=== PATIENT | female | born 1995 | race Caucasian/White ===

== ENCOUNTER 2018-04-28 00:20 | Emergency (ER) | payer SELFPAY ==
[2018-04-28] MEDS ORDERED: CYCLOBENZAPRINE 10 MG TAB ONE (01:36)
[2018-04-28] MEDS ORDERED: HYDROCODONE/APAP 7.5/325 MG TAB ONE (01:37)
[2018-04-28] MEDS ORDERED: KETOROLAC 30 MG/ML INJ ONE (01:37)
[2018-04-28 02:04] LABS: Urine Blood NEGATIVE (NEG); Urine Glucose NEGATIVE (NEG); Urine Protein NEGATIVE (NEG); Urine Specific Gravity >1.030 (1.005-1.030)
--- NOTE | 2018-04-28 03:20 | EDPHYS ---
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 - Social history:: Smoking status: Patient uses tobacco products, smokes one-half pack cigarettes per day. - Ebola Screening: : No symptoms or risks identified at this time. Vital Signs: 00:40 BP 126 / 72; Pulse 99; Resp 20; Temp 98.8; Pulse Ox 97% on R/A; Weight 81.65 kg; Height jb4 5 ft. 5 in. (165.10 cm); Pain 7/10; 01:45 BP 116 / 75; Pulse 88; Resp 16; Pulse Ox 97% on R/A; jb4 02:32 BP 102 / 58; Pulse 82; Resp 16; Pulse Ox 97% on R/A; jb4 03:31 BP 102 / 50; Pulse 78; Resp 16; Pulse Ox 98% on R/A; rr5 00:40 Body Mass Index 29.95 (81.65 kg, 165.10 cm) jb4 MDM: 00:26 Patient medically screened. cp 04/28 01:43 Order name: Urine Dipstick--Ancillary (enter results); Complete Time: 02:25 mw2 04/28 01:43 Order name: Urine --Ancillary (enter results); Complete Time: 02:25 mw2 04/28 01:02 Order name: XRAY Lumbar Spine (3 Views) cp 04/28 02:25 Order name: CT Lumbar Spine Wo Con cp 04/28 01:02 Order name: Urine Dipstick-Ancillary (obtain specimen); Complete Time: 01:42 cp 04/28 01:02 Order name: Urine Test (obtain specimen); Complete Time: 01:42 cp Administered Medications: 01:37 Drug: TORadol 60 mg Route: IM; Site: right deltoid; jb4 03:09 Follow up: Response: No adverse reaction; Pain is decreased jb4 01:37 Drug: Flexeril 10 mg Route: PO; jb4 03:09 Follow up: Response: No adverse reaction; Pain is decreased jb4 01:37 Drug: Hydrocodone-Acetaminophen (7.5 mg-325 mg) 1 tabs Route: PO; jb4 03:09 Follow up: Response: No adverse reaction; Pain is decreased jb4 Disposition: 04/28/18 03:19 Discharged to Home. Impression: Low back pain. - Condition is Stable. - Discharge Instructions: Back Pain, Adult, Back Exercises, [id number], Heat Therapy. - Prescriptions for Anaprox DS 550 mg Oral Tablet - take 1 tablet by ORAL route every 12 hours As needed; 20 tablet. Cyclobenzaprine 10 mg Oral Tablet - take 1 tablet by ORAL route every 8 hours As needed; 20 tablet. Tramadol 50 mg Oral Tablet - take 1 tablet by ORAL route every 8 hours as needed; 12 tablet. - Medication Reconciliation Form, Thank You Letter, Antibiotic Education, Prescription Opioid Use, Work release form form. - Follow up: Private Physician; When: 2 - 3 days; Reason: Recheck today's complaints. - Problem is new. - Symptoms have improved. Addendum: 05/08/2018 08:00 Addendum: HPI: Patient is a 22 y/o female who c/o low back pain. Patient reports fall c p while walking up stairs. Patient fell forward and reports hyper extending lower back. Addendum: ROS: Eyes: negative for injury, pain, redness, and discharge. Constitutional: negative for body aches, chills, fever, poor PO intake. ENT: negative for drainage from ear(s), ear pain, sore throat, difficulty swallowing, difficulty handling secretions. Cardiovascular: negative for chest pain, edema, palpitations. Respiratory: negative for cough, shortness of breath, wheezing. Abdomen/GI: negative for abdominal pain, nausea, vomiting, and diarrhea, constipation, black/tarry stool, rectal bleeding, bowel incontinence. Back: positive for pain at rest, pain with movement, of the low back. : negative for urinary symptoms, difficulty urinating, bladder incontinence, vaginal discharge. Skin: negative for cellulitis, rash. Neuro: negative for altered mental status, dizziness, headache, numbness, tingling, weakness. All other systems are negative. 08:15 Addendum: EXAM: Constitutional: The patient appears uncomfortable, in no acute c p distress, alert, awake, non-toxic, well developed, well nourished. Head/Face: Normocephalic, atraumatic. Eyes: Periorbital structures: appear normal, Conjunctiva: normal, no exudate, no injection, Sclera: no appreciated abnormality, Lids and lashes: appear normal, bilaterally. ENT: External ear(s): are unremarkable, Ear canal(s): are normal, clear, TM's: dullness, bilaterally, Nose: is normal, Mouth: Lips: moist, Oral mucosa: pink and intact, moist, Posterior pharynx: is normal, airway is patent, no erythema, no exudate, Voice: is normal. Neck: External neck: is normal, ROM/movement: is normal, is supple, without pain, no range of motions limitations, no nuchal rigidity. Chest/axilla: Inspection: normal, Palpation: is normal, no crepitus, no tenderness. Cardiovascular: Rate: normal, Rhythm: regular, Edema: is not appreciated, JVD: is not appreciated. Respiratory: the patient does not display signs of respiratory distress, Respirations: normal, no use of accessory muscles, no retractions, no splinting, no tachypnea, labored breathing, is not present, breath sounds: are clear throughout, no decreased breath sounds, no stridor, no wheezing. Abdomen/GI: Inspection: abdomen appears normal, bowel sounds: active, all quadrants, Palpation: abdomen is soft and non-tender, in all quadrants, rebound tenderness, is not appreciated, voluntary guarding, is not appreciated, involuntary guarding, is not appreciated. Back: pain, that is severe, of the low back, marked vertebral tenderness. Musculoskeletal/extremity: Exam is negative for calf tenderness, decreased range of motion, injury. Skin: cellulitis, is not appreciated, no rash present. Neuro: Orientation: to person, place and time. Mentation: is normal, Cerebellar function: is grossly normal, Motor: moves all fours, strength is normal, Sensation: is normal, Reflexes: 2+ throughout lower extremities bilaterally, Gait: steady. 08:25 Addendum: Data Reviewed: vital signs, nurses notes, lab test result(s), radiologic c p studies: plain films and CT scan, and as a result, I will discharge patient. Response to treatment: the patient's symptoms/pain have markedly improved after treatment, VSS, will discharge to home for continued monitoring. 05/09/2018 08:41 Co-signature as Attending Physician, Thomas Darden MD I agree with the assessment and c nam plan of care. Signatures: Dispatcher [employer] EDThomas Yuen MD MD cha Page, Corey, PA PA cp Gunner Reno, RN RN jb4 Corrections: (The following items were deleted from the chart) 04/28 03:37 03:19 04/28/2018 03:19 Discharged to Home. Impression: Low back pain. Condition is jb4 Stable. Forms are Medication Reconciliation Form, Thank You Letter, Antibiotic Education, Prescription Opioid Use. Follow up: Private Physician; When: 2 - 3 days; Reason: Recheck today's complaints. Problem is new. Symptoms have improved. cp
--- NOTE | 2018-04-28 03:20 | ER ---
Nurse's Notes [facility] Name: Columba Gil Age: 22 yrs Sex: Female : 1995 Arrival Date: 04/28/2018 Time: 00:23 Bed 15 Private MD: Diagnosis: Low back pain Presentation: 04/28 00:35 Presenting complaint: Patient states: I was running up the stairs and fell forward jb4 around 2200. I hurt my lower back in the fall and did not hit my head or loose consciousness. Care prior to arrival: None. Mechanism of Injury: Fall From Standing position. 00:35 Acuity: JETHRO 3 jb4 00:35 Method Of Arrival: Ambulatory jb4 00:35 Risk Assessment: Do you want to hurt yourself or someone else? Patient reports no rr5 desire to harm self or others. 00:35 Transition of care: patient was not received from another setting of care. Onset of rr5 symptoms was April 28, 2018. Initial Sepsis Screen: Does the patient meet any 2 criteria? HR > 90 bpm. Yes Does the patient have a suspected source of infection? No. Patient's initial sepsis screen is negative. Triage Assessment: 00:40 General: Appears in no apparent distress. uncomfortable, Behavior is calm, cooperative, jb4 appropriate for age. Pain: Complains of pain in low back area Pain does not radiate. Pain currently is 7 out of 10 on a pain scale. at worst was 10 out of 10 on a pain scale. Quality of pain is described as shooting, Pain began 3 hours ago. Is continuous. EENT: No signs and/or symptoms were reported regarding the EENT system. Neuro: Level of Consciousness is awake, alert, obeys commands, Oriented to person, place, time, situation. Cardiovascular: Patient's skin is warm and dry. Respiratory: Airway is patent Respiratory effort is even, unlabored, Respiratory pattern is regular, symmetrical. GI: No signs and/or symptoms were reported involving the gastrointestinal system. : No signs and/or symptoms were reported regarding the genitourinary system. Derm: Skin is intact, Skin is pink, warm \T\ dry. Musculoskeletal: Circulation, motion, and sensation intact. Reports pain in low back area. 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 - Social history:: Smoking status: Patient uses tobacco products, smokes one-half pack cigarettes per day. - Ebola Screening: : No symptoms or risks identified at this time. Screenin:45 Abuse screen: Denies threats or abuse. Nutritional screening: No deficits noted. jb4 Tuberculosis screening: No symptoms or risk factors identified. Fall Risk None identified. Assessment: 00:35 General: Appears in no apparent distress. uncomfortable, Behavior is calm, cooperative, jb4 appropriate for age. Pain: Complains of pain in low back area Pain does not radiate. Pain currently is 7 out of 10 on a pain scale. at worst was 10 out of 10 on a pain scale. Quality of pain is described as sharp, shooting, Pain began 3 hours ago. Is continuous. Neuro: Level of Consciousness is awake, alert, obeys commands, Oriented to person, place, time, situation. EENT: No signs and/or symptoms were reported regarding the EENT system. Cardiovascular: Patient's skin is warm and dry. Respiratory: Airway is patent Respiratory effort is even, unlabored, Respiratory pattern is regular, symmetrical. GI: No signs and/or symptoms were reported involving the gastrointestinal system. : No signs and/or symptoms were reported regarding the genitourinary system. Derm: Skin is intact, Skin is pink, warm \T\ dry. Musculoskeletal: Circulation, motion, and sensation intact. Reports pain in low back area. 01:30 Reassessment: Patient appears in no apparent distress at this time. Patient and/or jb4 family updated on plan of care and expected duration. Pain level reassessed. Patient is alert, oriented x 3, equal unlabored respirations, skin warm/dry/pink. 02:21 Reassessment: Patient appears in no apparent distress at this time. Patient and/or jb4 family updated on plan of care and expected duration. Pain level reassessed. Patient is alert, oriented x 3, equal unlabored respirations, skin warm/dry/pink. 02:56 Reassessment: Pt at radiology. jb4 03:10 Reassessment: Pt back from CT. jb4 03:31 Reassessment: Patient appears in no apparent distress at this time. Patient and/or rr5 family updated on plan of care and expected duration. Pain level reassessed. Patient is alert, oriented x 3, equal unlabored respirations, skin warm/dry/pink. Vital Signs: 00:40 BP 126 / 72; Pulse 99; Resp 20; Temp 98.8; Pulse Ox 97% on R/A; Weight 81.65 kg; Height jb4 5 ft. 5 in. (165.10 cm); Pain 7/10; 01:45 BP 116 / 75; Pulse 88; Resp 16; Pulse Ox 97% on R/A; jb4 02:32 BP 102 / 58; Pulse 82; Resp 16; Pulse Ox 97% on R/A; jb4 03:31 BP 102 / 50; Pulse 78; Resp 16; Pulse Ox 98% on R/A; rr5 00:40 Body Mass Index 29.95 (81.65 kg, 165.10 cm) jb4 ED Course: 00:23 Patient arrived in ED. ds1 00:25 Gunner Reno, STEVEN is Primary Nurse. jb4 00:26 Thomas Mcdonald PA is PHCP. cp 00:26 Thomas Darden MD is Attending Physician. cp 00:37 Triage completed. jb4 00:40 Arm band placed on right wrist. jb4 00:40 Patient has correct armband on for positive identification. Placed in gown. Bed in low rr5 position. Call light in reach. Side rails up X 1. 00:40 Pulse ox on. NIBP on. rr5 01:18 Radiology exam delayed due to test not completed at this time. kw 02:04 Patient moved to radiology via wheelchair. kw 02:04 X-ray completed. Patient tolerated procedure well. kw 02:05 XRAY Lumbar Spine (3 Views) In Process Unspecified. EDMS 02:[address] via wheelchair. kw1 02:51 CT Lumbar Spine Wo Con In Process Unspecified. EDMS 02:52 CT completed. Patient tolerated procedure well. Patient moved back from CT. kw1 03:32 No provider procedures requiring assistance completed. rr5 03:32 Patient did not have IV access during this emergency room visit. rr5 Administered Medications: 01:37 Drug: TORadol 60 mg Route: IM; Site: right deltoid; jb4 03:09 Follow up: Response: No adverse reaction; Pain is decreased jb4 01:37 Drug: Flexeril 10 mg Route: PO; jb4 03:09 Follow up: Response: No adverse reaction; Pain is decreased jb4 01:37 Drug: Hydrocodone-Acetaminophen (7.5 mg-325 mg) 1 tabs Route: PO; jb4 03:09 Follow up: Response: No adverse reaction; Pain is decreased jb4 Outcome: 03:19 Discharge ordered by . isac 03:32 Discharged to home ambulatory. rr5 03:32 Condition: stable 03:32 Discharge instructions given to patient, Instructed on discharge instructions, follow up and referral plans. medication usage, Demonstrated understanding of instructions, follow-up care, medications, Prescriptions given X 3. 03:37 Patient left the ED. jb4 Signatures: Dispatcher [employer] EDNE Alisa Francois ds1 Lily Nunez Corey, PA PA cp Bryson, James, RN RN jb4 Viry Fong kw1 Wayne Mills, RN RN rr5
--- NOTE | 2018-04-28 07:40 | RAD REPORT ---
EXAM DESCRIPTION: CT - Spine Lumbar Wo Con - 04/28/2018 3:29 am CLINICAL HISTORY: Fall, back pain A preliminary report was provided at the time of the study and reviewed prior to final report. COMPARISON: Lumbar plain films same date TECHNIQUE: Thin section axial imaging of the lumbar spine was performed. Sagittal and coronal recon struction images were generated and reviewed. All CT scans are performed using dose optimization technique as appropriate and may include automated exposure control or mA/KV adjustment according to patient size. FINDINGS: Lumbar bodies are normal in height and normal in alignment. The very slight wedge configur ation of T12 and L1 can be seen normally. No compression fracture or acute vertebral finding confirme d. No pars defect or facet joint acute finding identifiable. No perispinal mass. Central canal detail is inherently limited. No gross evidence for large disc herniation. No stenosis of the central canal or exit foramina confirmed. SI joints within normal limits. No sacral ala fracture identifiable. IMPRESSION: No acute lumbar spine abnormality confirmed. Slight wedging of the T12 and L1 bodies can be seen as normal variant. Concerns for disc herniation, occult bone abnormality or central canal abnormality can be addressed w ith MR imaging.
--- NOTE | 2018-04-28 07:47 | RAD REPORT ---
EXAM DESCRIPTION: RAD - Lumbar Spine 3 Views - 04/28/2018 2:15 am CLINICAL HISTORY: Fall, back pain COMPARISON: None. FINDINGS: A three-view lumbar spine examination was performed. Lumbar bodies are normal in height an d alignment. No fracture or acute bony process seen. No disc space narrowing. No other significant fi ndings. No pars defects identified. IMPRESSION: Negative Lumbar Spine examination.
== END 2018-04-28 03:37 | disposition home or self-care (01) ==
LOC: ER 00:20
DX: M54.5 Low back pain (principal); F17.210 Nicotine dependence, cigarettes, uncomplicated
CPT/HCPCS: 72100; 72131; 81003; 81025; 96372; 99284